=== PATIENT | female | born 1980 | race Two or more races ===

== ENCOUNTER 2025-03-18 13:02 | Emergency (ER) | payer BC ==
[~2025-03-18] VITALS: Ht 172.7 cm; Wt 81.6 kg
[2025-03-18] MEDS ORDERED: METHYLPREDNISOLONE SOD SUCC 125 MG VIAL ONE (13:52)
[2025-03-18] MEDS ORDERED: WATER FOR INJ.,BACTERIOSTATIC 30 ML VIAL IJ ONE (13:52)
[2025-03-18] MEDS ORDERED: CEFTRIAXONE SODIUM 1,000 MG VIAL ONE (13:53)
[2025-03-18] MEDS ORDERED: MAGNESIUM SULFATE 50% 1,000 MG/2 ML VIAL ONE (13:59)
[2025-03-18] MEDS ORDERED: METHYLPREDNISOLONE SOD SUCC 125 MG VIAL IV ONE (14:00)
[2025-03-18] MEDS ORDERED: IPRATROPIUM BROMIDE 0.5 MG/2.5 ML AMPUL.NEB IH SCH (14:00)
[2025-03-18] MEDS ORDERED: LEVALBUTEROL HCL 1.25 MG/3 ML SOLUTION IH SCH (14:00)
[2025-03-18] MEDS ORDERED: MAGNESIUM SULFATE IN WATER 2 GM/50 ML PIGGYBAG IV ONE (14:00)
[2025-03-18] MEDS ORDERED: CEFTRIAXONE SODIUM 1,000 MG VIAL IV ONE (14:00)
[2025-03-18] MEDS ORDERED: BENZONATATE 200 MG CAPSULE PO ONE (14:00)
[2025-03-18] MEDS ORDERED: LEVALBUTEROL HCL 1.25 MG/3 ML SOLUTION IH ONE (14:19)
[2025-03-18] MEDS ORDERED: IPRATROPIUM BROMIDE 0.5 MG/2.5 ML AMPUL.NEB IH ONE (14:19)
[2025-03-18 14:20] LABS: BASO % 0.5 % (0.1-1.2); EOS # 0.02 (0.04-0.54); EOS % 0.5 % (0.7-7.0); LYMPH # 0.65 (1.18-3.74); LYMPH % 15.2 % (19.3-53.1); MEAN PLATELET VOLUME 10.60 fl (9.4-12.4); MONO # 0.35 (0.24-0.82); MONO % 8.2 % (4.7-12.5); NEUT # 3.24 (1.56-6.13); NEUT % 75.4 % (34.0-71.1); RED CELL DISTRIBUTION WIDTH 12.6 % (11.6-14.4)
[2025-03-18 14:38] LABS: COVID-19 AG NEGATIVE (NEGATIVE)
[2025-03-18 14:41] LABS: ABG PH 7.439 (7.35-7.45); ABG PO2 81.4 mmHg (80-100); BICARBONATE 21.8 mmol/l (23-25)
[2025-03-18 14:47] LABS: ALT/SGPT 23 U/L (12-78); AST/SGOT 20 U/L (15-37); BILIRUBIN TOTAL 0.22 mg/dL (0.3-1.2); BUN CREA RATIO 13 (7.0-25.0); CREATININE SERUM 0.77 mg/dL (0.55-1.02); GFR 80.70; GLOBULINA 3.4 G/DL (2.4-3.5); GLUCOSE FASTING 98 mg/dL (65-100); OSMOLALITY SERUM 278 MOSM/KG (275-295)
[2025-03-18 14:48] LABS: HCG QUANTITATIVE < 1 mUI/mL (1-3)
[2025-03-18] MEDS ORDERED: PEPCID AC20 MG PO (15:14)
[2025-03-18] MEDS ORDERED: OSEL75CA PO (15:14)
[2025-03-18] MEDS ORDERED: LEVALBUTER0.63 MG/3 IH (15:14)
[2025-03-18 15:56] LABS: o2 21 %
== END 2025-03-18 15:39 | disposition home or self-care (01) ==
LOC: ER 13:02
PROVIDERS: General Practice
DX: J10.1 Influenza due to other identified influenza virus with other respiratory manifestations (principal); R06.02 Shortness of breath; J45.909 Unspecified asthma, uncomplicated; Z20.822 Contact with and (suspected) exposure to COVID-19